=== PATIENT | female | born 1970 | race Caucasian/White ===

== ENCOUNTER 2017-05-18 19:19 | Emergency (ER) | payer OTHER ==
[~2017-05-18] VITALS: Ht 162.6 cm; Wt 111.1 kg
[~2017-05-18 19:19] MED LIST: HYDROCODONE-AP1 EAC6 PO; MEDROLDOSEPACK PO; NAPROSYN500 MG PO; ROBAXIN 750 MG750 M1 PO
[2017-05-18] MEDS ORDERED: BENADRYL25 MG PO (19:27)
[2017-05-18] MEDS ORDERED: IBUPROFEN 600600 M1 PO (20:05)
[2017-05-18] MEDS ORDERED: BACTRIM DS TAB1 EACH PO (20:05)
[2017-05-18] MEDS ORDERED: NORCO 5-325 TA1 EACH PO (20:05)
[2017-05-18 20:38] VITALS: BP 146/89
== END 2017-05-18 20:39 | disposition home or self-care (01) ==
LOC: M.ERS 19:19
DX: L02.211 Cutaneous abscess of abdominal wall (principal); Z90.49 Acquired absence of other specified parts of digestive tract; Z91.030 Bee allergy status; Z91.02 Food additives allergy status

== ENCOUNTER 2018-07-03 16:28 | Emergency (ER) | payer OTHER ==
[~2018-07-03] VITALS: Ht 160 cm; Wt 95.3 kg
[~2018-07-03 16:28] MED LIST changes: +BACTRIM DS TAB1 EACH PO; +BENADRYL25 MG PO; +IBUPROFEN 600600 M1 PO; +NORCO 5-325 TA1 EACH PO
[2018-07-03] MEDS ORDERED: NAPROSYN500 M1 PO (16:56)
[2018-07-03] MEDS ORDERED: FLEXERIL PO (16:56)
[2018-07-03 18:30] VITALS: BP 175/99
== END 2018-07-03 18:38 | disposition home or self-care (01) ==
LOC: M.ERS 16:28
DX: S16.1XXA Strain of muscle, fascia and tendon at neck level, initial encounter (principal); M54.5 Low back pain; M54.6 Pain in thoracic spine; E66.01 Morbid (severe) obesity due to excess calories; Z91.018 Allergy to other foods; Z91.030 Bee allergy status; Z90.49 Acquired absence of other specified parts of digestive tract; Z68.37 Body mass index [BMI] 37.0-37.9, adult; V43.52XA Car driver injured in collision with other type car in traffic accident, initial encounter; Y93.89 Activity, other specified; Y92.89 Other specified places as the place of occurrence of the external cause; Y99.8 Other external cause status